=== PATIENT | female | born 1980 | race Caucasian/White ===

== ENCOUNTER 2019-09-21 08:07 | Emergency (ER) | payer BC ==
[2019-09-21 08:20] VITALS: BP 128/73
--- NOTE | 2019-09-21 09:07 | UC ---
Palpitation/Dysrhythmia HP - HPI Summary HPI Summary: 39 yo healthy woman who awoke with heart palpitations and sense of rapid heart rate in the night, wtih poor sleep related to yesterday's stress with early childhood and an argument with her . She has no cough or shortness of breath, but is concerned about the sense of rapid heart rate as her has had a fib. She has not checked her heart rate at home when it feels fast. She is typically in good health and exercises regularly. No meds used, no supplements. Uses minimal caffeine. - History of Current Complaint Chief Complaint: UCChestPain Stated Complaint: RAPID HEART BEAT CHEST TIGHT Time Seen by Provider: 09/21/19 08:10 Hx Obtained From: Patient Hx Last Menstrual Period: yesterday Onset/Duration: Sudden Onset, Lasting Hours Timing: Intermittent Episodes Lasting: Severity Initially: Mild Severity Currently: Mild Pain Intensity: 0 Character: Fast, Pounding Aggravating Factor(s): Exertion Alleviating Factor(s): Rest Associated Signs & Symptoms: Positive: Lightheadedness, Chest Pain - mild sense of pressure. Negative: Diaphoresis, Nausea - Risk Factors Cardiac: Negative Pulmonary Embolism: Negative Atrial Fibrillation: Negative - Allergy/Home Medications Allergies/Adverse Reactions: Allergies Allergy/AdvReac Type Severity Reaction Status Date / Time codeine AdvReac Nausea And Verified 09/21/19 08:14 Vomiting PMH/Surg Hx/FS Hx/Imm Hx Previously Healthy: Yes - Surgical History Surgical History: None - Family History Known Family History: Positive: None - parents in mid 70's and healthy, Hypertension - in grandfather - Social History Occupation: Employed Full-time Lives: With Family Alcohol Use: Rare Substance Use Type: None Smoking Status (MU): Never Smoked Tobacco - Immunization History Most Recent Tetanus Shot: 2008 Review of Systems All Other Systems Reviewed And Are Negative: Yes Constitutional: Positive: Negative Skin: Positive: Negative Eyes: Positive: Negative ENT: Positive: Negative Cardiovascular: Positive: Palpitations, Chest Pain Gastrointestinal: Positive: Negative Genitourinary: Positive: Negative Motor: Positive: Negative Neurovascular: Positive: Negative Musculoskeletal: Positive: Negative Neurological: Positive: Negative Psychological: Positive: Negative Is Patient Immunocompromised?: No Physical Exam Triage Information Reviewed: Yes Appearance: Well-Appearing, No Pain Distress Vital Signs: Initial Vital Signs Temp 97.8 F 09/21/19 08:15 Pulse 82 09/21/19 08:15 Resp 18 09/21/19 08:15 BP 128/73 09/21/19 08:15 Pulse Ox 100 09/21/19 08:15 Eyes: Positive: Conjunctiva Clear ENT: Positive: Pharynx normal, TMs normal Neck: Positive: Supple, Nontender, No Lymphadenopathy Respiratory: Positive: Lungs clear, Normal breath sounds Cardiovascular: Positive: RRR, No Murmur Abdomen Description: Positive: Nontender, No Organomegaly, Soft Musculoskeletal Exam: Normal Neurological Exam: Normal Psychological Exam: Normal Skin Exam: Normal Diagnostics - EKG Cardiac Rate: NL Cardiac Rhythm: Sinus: Normal Ectopy: None ST Segment: Normal Palpitations Course/Dx - Course Course Of Treatment: Reassured re normal heart rate, and she agrees that her symptoms could be related to stress and poor sleep. At this time, she would like to rest at home today and will follow up with her PMD. - Differential Dx/Diagnosis Provider Diagnosis: Anxiety Discharge ED - Sign-Out/Discharge Documenting (check all that apply): Patient Departure All imaging exams completed and their final reports reviewed: No Studies - Discharge Plan Condition: Stable Disposition: HOME Patient Education Materials: Anxiety (ED) Forms: *Work Release Referrals: Josefina Chance MD [Primary Care Provider] - Additional Instructions: As discussed you will rest at home today. Follow up with your primary care doctor for evaluation if you have continued palpitations. - Billing Disposition and Condition Condition: STABLE Disposition: Home
== END 2019-09-21 09:37 | disposition home or self-care (01) ==
LOC: UCEAST 08:07
DX: F41.9 Anxiety disorder, unspecified (principal); R07.9 Chest pain, unspecified; Z88.5 Allergy status to narcotic agent
CPT/HCPCS: 93005; 99211; G0463